=== PATIENT | female | born 1985 | race Two or more races ===

== ENCOUNTER 2024-04-15 07:46 | Emergency (ER) | payer OTHER ==
[~2024-04-15] VITALS: Ht 162.6 cm; Wt 97.5 kg
[2024-04-15] MEDS ORDERED: KETOROLAC TROMETHAMINE 15 MG VIAL IV ONE (08:45)
[2024-04-15] MEDS ORDERED: ONDANSETRON HCL 2 MG/ML VIAL IV ONE (08:45)
[2024-04-15] MEDS ORDERED: KETOROLAC TROMETHAMINE 30 MG VIAL ONE (08:46)
[2024-04-15] MEDS ORDERED: ONDANSETRON HCL 2 MG/ML VIAL ONE (08:47)
[2024-04-15 09:58] LABS: ALBUMIN 3.7 gm/dL (3.4-5.0); BILIRUBIN TOTAL 0.48 mg/dL (0.3-1.2); CALCIUM 9.1 mg/dL (8.5-10.1); CREATININE SERUM 0.84 mg/dL (0.55-1.02); GFR 75.09; GLOBULINA 3.3 G/DL (2.4-3.5); POTASSIUM 4.58 mEq/L (3.5-5.1)
[2024-04-15 10:08] LABS: HEMATOCRIT 33.5 % (36.0-45.00); HEMOGLOBIN 10.8 g/dL (12.0-15.00); MEAN CELL VOLUME 78.5 fL (80.00-100.00); MEAN CORPUSCULAR HEMOGLOBIN 25.4 pg (27.00-32.0); MEAN CORPUSCULAR HGB CONC 32.4 g/dl (32.0-36.0); PLATELET COUNT 233 K/uL (150-450); RED BLOOD COUNT 4.26 M/uL (4.00-6.00); RED CELL DISTRIBUTION WIDTH 15.1 % (11.5-14.5)
[2024-04-15 13:32] LABS: PH,URINE 6.5 (5.0-8.0); URINE APPEARANCE Clear; URINE BILIRRUBIN Negative (NEGATIVE); URINE BLOOD Negative; URINE COLOR Yellow; URINE GLUCOSE Negative (NEGATIVE); URINE KETONE Negative (NEGATIVE); URINE LEUKOCYTE Trace; URINE NITRATE Negative; URINE PROTEIN Trace (NEGATIVE)
[2024-04-15 13:37] LABS: URINE BACTERIA 4678.3 uL (0.0-1933); URINE RBC 2.2 uL (0.0-20.8); URINE WBC 64.9 uL (0.0-23.2)
== END 2024-04-15 14:21 | disposition home or self-care (01) ==
LOC: ER 07:48
PROVIDERS: General Practice
DX: R10.12 Left upper quadrant pain (principal); N20.0 Calculus of kidney

== ENCOUNTER 2024-07-13 20:30 | Emergency (ER) | payer OTHER ==
[~2024-07-13] VITALS: Ht 162.6 cm; Wt 88.0 kg
[2024-07-13] MEDS ORDERED: FAMOTIDINE/PF 20 MG in 0.9 % SODIUM CHLORIDE 8 ML IV PUSH STA (21:05)
[2024-07-13] MEDS ORDERED: CEFTRIAXONE SODIUM 1,000 MG VIAL IV ONE (21:15)
[2024-07-13] MEDS ORDERED: ONDANSETRON HCL 2 MG/ML VIAL IV ONE (21:15)
== END 2024-07-13 21:30 | disposition home or self-care (01) ==
LOC: ER 20:32
DX: H66.93 Otitis media, unspecified, bilateral (principal)
CPT/HCPCS: 96365; 99282; J0696; J2405; J3490

== ENCOUNTER 2024-07-30 16:54 | Emergency (ER) | payer OTHER ==
[~2024-07-30] VITALS: Ht 162.6 cm; Wt 88.5 kg
[2024-07-30] MEDS ORDERED: ORPHENADRINE CITRATE 30 MG/ML AMPUL IM ONE (19:15)
[2024-07-30] MEDS ORDERED: DEXAMETHASONE SODIUM PHOSPHATE 4 MG/ML VIAL IM ONE (19:15)
[2024-07-30] MEDS ORDERED: KETOROLAC TROMETHAMINE 60 MG VIAL IM ONE (19:15)
[2024-07-30] MEDS ORDERED: ORPHENADRINE CITRATE 100 MG TABLET PO ONE (19:30)
== END 2024-07-30 20:51 | disposition home or self-care (01) ==
LOC: ER 16:56
DX: R07.89 Other chest pain (principal)
CPT/HCPCS: 93005; 96372; 99283; J1100; J1885; J2360

== ENCOUNTER 2024-08-01 09:23 | Emergency (ER) | payer OTHER ==
[~2024-08-01] VITALS: Ht 162.6 cm; Wt 89.4 kg
[2024-08-01 10:09] VITALS: BP 115/76; O2SAT 100
[2024-08-01] MEDS ORDERED: NORFLEX100MG PO (10:12)
[2024-08-01] MEDS ORDERED: IBUPROFEN600 MG PO (10:12)
[2024-08-01] MEDS ORDERED: ONDANSETRON HCL 2 MG/ML VIAL IV ONE (11:00)
[2024-08-01] MEDS ORDERED: FAMOTIDINE/PF 20 MG/2 ML VIAL IV PUSH ONE (11:00)
[2024-08-01] MEDS ORDERED: MEPERIDINE HCL/PF 25 MG/ML VIAL IV ONE (11:00)
[2024-08-01 11:23] LABS: HEMATOCRIT 30.8 % (36.0-45.00); HEMOGLOBIN 10.1 g/dL (12.0-15.00); MEAN CELL VOLUME 79.2 fL (80.00-100.00); MEAN CORPUSCULAR HEMOGLOBIN 26.1 pg (27.00-32.0); PLATELET COUNT 194 K/uL (150-450); RED BLOOD COUNT 3.88 M/uL (4.00-6.00); RED CELL DISTRIBUTION WIDTH 15.8 % (11.5-14.5)
[2024-08-01 11:48] LABS: ALBUMIN 3.6 gm/dL (3.4-5.0); BILIRUBIN TOTAL 0.37 mg/dL (0.3-1.2); CALCIUM 8.8 mg/dL (8.5-10.1); CREATININE SERUM 1.04 mg/dL (0.55-1.02); GFR 58.4; GLOBULINA 3.1 G/DL (2.4-3.5); POTASSIUM 3.97 mEq/L (3.5-5.1); TOTAL PROTEIN 6.7 gm/dL (6.4-8.2)
[2024-08-01] MEDS ORDERED: OMECLAMOX-PAK1 EACH PO (12:43)
[2024-08-01] MEDS ORDERED: INTESTINEX680 M1 PO (12:43)
[2024-08-01] MEDS ORDERED: METAMUCIL POWD575 G1 PO (12:45)
== END 2024-08-01 13:37 | disposition home or self-care (01) ==
LOC: ER 09:25
PROVIDERS: General Practice
DX: R10.13 Epigastric pain (principal); K59.00 Constipation, unspecified; N20.0 Calculus of kidney

== ENCOUNTER 2024-08-12 01:20 | Emergency (ER) | payer OTHER ==
[~2024-08-12] VITALS: Ht 162.6 cm; Wt 89.4 kg
[~2024-08-12 01:20] MED LIST: IBUPROFEN600 MG PO; INTESTINEX680 M1 PO; METAMUCIL POWD575 G1 PO; NORFLEX100MG PO; OMECLAMOX-PAK1 EACH PO
[2024-08-12] MEDS ORDERED: METOCLOPRAMIDE HCL 5 MG/ML VIAL IM STA (04:09)
[2024-08-12] MEDS ORDERED: HYOSCYAMINE SULFATE 0.125 MG TAB.SUBL SL STA (04:10)
[2024-08-12] MEDS ORDERED: FAMOtidine 10 MG/ML (4ML VIAL) IV PUSH STA (04:11)
[2024-08-12] MEDS ORDERED: KETOROLAC TROMETHAMINE 30 MG VIAL IV STA (04:11)
== END 2024-08-12 07:18 | disposition home or self-care (01) ==
LOC: ER 01:22
DX: K29.70 Gastritis, unspecified, without bleeding (principal); K30 Functional dyspepsia; R10.9 Unspecified abdominal pain

== ENCOUNTER 2025-02-04 23:06 | Emergency (ER) | payer OTHER ==
[~2025-02-04] VITALS: Ht 162.6 cm; Wt 83.0 kg
[~2025-02-04 23:06] MED LIST changes: +DOXYCYCLINE HY100 M2 PO; +IBU600 MG PO
[2025-02-05] MEDS ORDERED: PROMETHAZINE HCL 50 MG/ML AMPUL IM STA ×2 (00:24→04:46)
[2025-02-05] MEDS ORDERED: HYOSCYAMINE SULFATE 0.125 MG TAB.SUBL SL STA (00:24)
[2025-02-05] MEDS ORDERED: FAMOTIDINE/PF 20 MG/2 ML VIAL IV PUSH STA (00:25)
[2025-02-05] MEDS ORDERED: LACTOBACILLUS ACIDOPHILUS 1 CAP CAP PO STA (00:25)
[2025-02-05] MEDS ORDERED: 0.9 % SODIUM CHLORIDE 1,000 ML IV ONE (00:30)
[2025-02-05] MEDS ORDERED: LACTOBACILLUS ACIDOPHILUS 1 CAP CAP PO ONE (00:55)
[2025-02-05] MEDS ORDERED: PROMETHAZINE HCL 50 MG/ML AMPUL IM ONE (00:55)
[2025-02-05] MEDS ORDERED: HYOSCYAMINE SULFATE 0.125 MG TAB.SUBL ONE (00:55)
[2025-02-05] MEDS ORDERED: FAMOTIDINE/PF 20 MG/2 ML VIAL ONE (00:56)
[2025-02-05 01:41] LABS: BASO % 0.4 % (0.1-1.2); EOS # 0.44 (0.04-0.54); EOS % 6.4 % (0.7-7.0); HEMATOCRIT 32.3 % (34.1-44.9); HEMOGLOBIN 9.9 g/dL (11.2-15.7); LYMPH % 30.3 % (19.3-53.1); MEAN CORPUSCULAR HEMOGLOBIN 24.9 pg (25.6-32.2); MONO # 0.53 (0.24-0.82); MONO % 7.7 % (4.7-12.5); NEUT % 54.9 % (34.0-71.1); PLATELET COUNT 239 K/uL (163-369); RED BLOOD COUNT 3.97 M/uL (3.93-5.22); RED CELL DISTRIBUTION WIDTH 14.4 % (11.6-14.4)
[2025-02-05 01:43] LABS: URINE APPEARANCE Clear; URINE BILIRRUBIN Negative (NEGATIVE); URINE BLOOD Negative; URINE COLOR Yellow; URINE GLUCOSE Negative (NEGATIVE); URINE KETONE Negative (NEGATIVE); URINE LEUKOCYTE Negative; URINE NITRATE Negative; URINE PROTEIN Negative (NEGATIVE); URINE UROBILINOGEN 0.2 E.U./dl
[2025-02-05 01:47] LABS: URINE BACTERIA 125.9 uL (0.0-1933); URINE EPITHELIAL CELLS 18.6 uL (0.0-38.8); URINE RBC 3.9 uL (0.0-20.8)
[2025-02-05 02:57] LABS: CALCIUM 8.4 mg/dL (8.5-10.1); CREATININE SERUM 0.83 mg/dL (0.55-1.02); GFR 75.76; POTASSIUM 4.34 mEq/L (3.5-5.1)
[2025-02-05] MEDS ORDERED: KETOROLAC TROMETHAMINE 30 MG VIAL ONE (05:05)
[2025-02-05] MEDS ORDERED: KETOROLAC TROMETHAMINE 30 MG VIAL IV STA (05:09)
[2025-02-05] MEDS ORDERED: PEPCID AC20 MG PO (11:13)
[2025-02-05] MEDS ORDERED: PROBIOTIC1 EAC2 PO (11:13)
== END 2025-02-05 12:12 | disposition home or self-care (01) ==
LOC: ER 23:14
PROVIDERS: General Practice
DX: R11.10 Vomiting, unspecified (principal); R19.7 Diarrhea, unspecified; R50.9 Fever, unspecified; R10.9 Unspecified abdominal pain; Z91.013 Allergy to seafood
CPT/HCPCS: 36415; 74177; Q9965

== ENCOUNTER 2025-03-23 11:37 | Emergency (ER) | payer OTHER ==
[~2025-03-23] VITALS: Ht 162.6 cm; Wt 81.6 kg
[~2025-03-23 11:37] MED LIST changes: +PEPCID AC20 MG PO; +PROBIOTIC1 EAC2 PO
[2025-03-23 15:47] LABS: BASO % 0.5 % (0.1-1.2); EOS # 0.38 (0.04-0.54); EOS % 4.9 % (0.7-7.0); LYMPH # 1.85 (1.18-3.74); LYMPH % 24.1 % (19.3-53.1); MEAN PLATELET VOLUME 11.40 fl (9.4-12.4); MONO # 0.58 (0.24-0.82); MONO % 7.5 % (4.7-12.5); NEUT # 4.82 (1.56-6.13); NEUT % 62.7 % (34.0-71.1); RED CELL DISTRIBUTION WIDTH 14.7 % (11.6-14.4)
[2025-03-23 16:06] LABS: COVID-19 AG NEGATIVE (NEGATIVE)
[2025-03-23] MEDS ORDERED: ACETAMINOPHEN500 M1 PO (16:57)
[2025-03-23] MEDS ORDERED: GILTUSS COUGH-118 M1 PO (16:57)
== END 2025-03-23 17:15 | disposition home or self-care (01) ==
LOC: ER 11:37
PROVIDERS: Preventive Medicine Public Health & General Preventive Medicine
DX: J06.9 Acute upper respiratory infection, unspecified (principal); R51.9 Headache, unspecified; Z20.822 Contact with and (suspected) exposure to COVID-19; Z91.013 Allergy to seafood